=== PATIENT | male | born 1990 | race American Indian/Alaskan Native ===

== ENCOUNTER 2017-04-23 05:36 | Emergency (ER) | payer OTHER ==
[2017-04-23 05:41] VITALS: O2SAT 100
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
[2017-04-23 06:55] VITALS: BP 120/83; PULSE 80; RESP 20; TEMP 98
--- NOTE | 2017-04-23 09:09 | RAD ---
PROCEDURE: Right Hand Radiographs. HISTORY: trauma, pain and swelling COMPARISON: None. FINDINGS: BONES: Comminuted fracture 3rd metacarpal base with carpal/metacarpal extension nondisplaced. JOINTS: Normal. No osteoarthritic changes. SOFT TISSUES: Soft tissue swelling surrounding fracture OTHER FINDINGS: None. IMPRESSION: Third metacarpal fracture
== END 2017-04-23 06:57 | disposition home or self-care (01) ==
LOC: C.ER 05:36 → SUPCPDRO 05:36 → C.ER 06:57
DX: S62.342A Nondisplaced fracture of base of third metacarpal bone, right hand, initial encounter for closed fracture (principal); W51.XXXA Accidental striking against or bumped into by another person, initial encounter

== ENCOUNTER 2017-12-26 15:33 | Emergency (ER) | payer OTHER ==
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
[2017-12-26 17:29] LABS: BASO % 0.8 % (0.0-2.0); EOS # 0.1 K/uL (0.0-0.7); HEMOGLOBIN 13.8 g/dL (12.0-18.0); LYMPH % 43.1 % (20.0-40.0); MEAN CELL VOLUME 91.2 fL (80.0-94.0); MEAN CORPUSCULAR HEMOGLOBIN 32.2 pg (27.0-31.0); MEAN CORPUSCULAR HGB CONC 35.4 g/dL (33.0-37.0); MEAN PLATELET VOLUME 7.4 fL (7.2-11.7); MONO # 0.4 K/uL (0.0-0.8); MONO % 9.4 % (0.0-10.0); NEUT # 2.1 K/uL (1.8-7.0); NEUT % 44.7 % (50.0-75.0); NRBC % 0.1 % (0.0-2.0); RBC 4.27 Mil/uL (4.40-5.90); RED CELL DISTRIBUTION WIDTH 12.4 % (11.5-14.5); WHITE BLOOD COUNT 4.7 K/uL (4.8-10.8)
[2017-12-26 17:34] LABS: VENOUS BLOOD GAS BASE EXCESS 1.5 mmol/L (0.0-2.0); VENOUS BLOOD GAS PCO2 39 mmHg (40-60); VENOUS BLOOD GAS PO2 70 mm/Hg (30-55); VENOUS BLOOD PH 7.43 (7.32-7.43)
[2017-12-26 17:42] LABS: ALB/GLOB RATIO 1.6 (1.0-2.1); ALBUMIN 3.9 g/dL (3.5-5.0); ALT/SGPT 27 U/L (21-72); AST/SGOT 19 U/L (17-59); BLOOD UREA NITROGEN 17 mg/dL (9-20); CALCIUM 9.2 mg/dl (8.6-10.4); GFR NON-AFRICAN AMERICAN > 60
[2017-12-26 18:45] VITALS: BP 115/67; PULSE 63; RESP 17; TEMP 97.6; O2SAT 99
--- NOTE | 2017-12-27 09:08 | US ---
Date of service: 12/26/2017 HISTORY: inguinal hernia TECHNIQUE: Realtime sonography through the scrotum with color and doppler flow. COMPARISON: None Available. FINDINGS: RIGHT TESTICLE: Measures 5.5 x 2.5 x 2.4 cm. Normal echotexture and flow. There is microlithiasis. RIGHT EPIDIDYMIS: Epididymal head measures 1.1 x 0.7 x 1.0 cm. There is a 2 mm cyst in the head of the epididymis. Grossly unremarkable appearance with normal flow. LEFT TESTICLE: Measures 4.8 x 2.1 x 2.6 cm. Normal echotexture and flow. There is microcalcification. Additionally, there is a 5 mm coarse calcification posteriorly. LEFT EPIDIDYMIS: Epididymal head measures 1.0 x 0.8 x 0.9 cm. Grossly unremarkable appearance with normal flow. HYDROCELE: There is a small left hydrocele. VARICOCELE: There are bilateral varicoceles, larger on the left. OTHER FINDINGS: None. IMPRESSION: No evidence for testicular mass or torsion. Testicular microlithiasis. Clinical follow-up is advised. In high-risk patients, annual screening is advised. Bilateral varicoceles, larger on the left. Small left varicocele. A preliminary report was provided by [facility].
== END 2017-12-26 19:36 | disposition home or self-care (01) ==
LOC: C.ER 15:33
DX: K40.90 Unilateral inguinal hernia, without obstruction or gangrene, not specified as recurrent (principal); N45.1 Epididymitis

== ENCOUNTER 2018-07-31 10:20 | Outpatient (CLI) | payer OTHER | END 2018-07-31 10:21 | disposition home or self-care (01) | LOC: C.PAT 10:20 | DX: K40.90 Unilateral inguinal hernia, without obstruction or gangrene, not specified as recurrent (principal) ==

== ENCOUNTER 2018-08-06 05:57 | Day surgery (SDC) | payer OTHER ==
[2018-07-31 10:35] VITALS: BMI 23.1
[2018-08-06 06:55] VITALS: RESP 18
[2018-08-06] MEDS ORDERED: Bupivacaine 0.25% 20 ML INJ IJ ONE (07:32)
[2018-08-06] MEDS ORDERED: Lidocaine/Epinephrine 1% 1:100000 10 ML IJ ONE (07:32)
[2018-08-06] MEDS ORDERED: ceFAZolin 1 gm in NS 2 GM/200 ML BAG IVPB ONE (07:32)
[2018-08-06] MEDS ORDERED: Sodium Chloride 0.9% 40 ML IV ONE (07:32)
[2018-08-06] MEDS ORDERED: Bupivacaine Liposomal Inj 20 ml INFIL ONE (07:34)
[2018-08-06] MEDS ORDERED: Propofol 10 mg/ml Inj (20 ML) ONE (07:39)
[2018-08-06] MEDS ORDERED: Midazolam 2 MG/2 ML VIAL ONE (07:39)
[2018-08-06] MEDS ORDERED: Neostigmine 1:1000 (1 mg/ml) Inj ONE (09:25)
[2018-08-06] MEDS ORDERED: Morphine 4 MG/ML VIAL ONE (09:59)
[2018-08-06] MEDS ORDERED: HYDROmorphone 0.5 mg/0.5 ml ISec IVP PRN (10:09)
--- NOTE | 2018-08-06 10:45 | PCM.SURG1 ---
Surgeon's Initial Post Op Note - Surgeon's Notes Surgeon: Larry Hammer MD Vp Communications: MARY Yadav Type of Anesthesia: General Endo Pre-Operative Diagnosis: Right Inguinal henia. Right Groin pain Operative Findings: Right indirect inguinal hernia Post-Operative Diagnosis: Right indirect inguinal hernia Operation Performed: Robotic Right inguinal hernia repair with mesh. Lap B/L TAP block placement Specimen/Specimens Removed: None Estimated Blood Loss: EBL {In ML}: 10 Blood Products Given: N/A Drains Used: No Drains Post-Op Condition: Good Date of Surgery/Procedure: 08/06/18 Time of Surgery/Procedure: 10:44
[2018-08-06 12:18] VITALS: TEMP 97.5
[2018-08-06 13:03] VITALS: BP 134/90; PULSE 64; O2SAT 97
--- NOTE | 2018-08-12 20:50 | OP ---
PROCEDURE DATE: 08/06/2018 PREOPERATIVE DIAGNOSES: 1. Right inguinal hernia. 2. Right groin pain. 3. Left varicocele. POSTOPERATIVE DIAGNOSES: 1. Right inguinal hernia. 2. Right groin pain. 3. Left varicocele. PROCEDURE DONE: 1. Robotic right inguinal hernia repair with mesh. 2. Laparoscopic bilateral TAP block placement. SURGEON: Mathieu Hammer MD CREDENTIALING MANAGER: UNIQUE Yadav TYPE OF ANESTHESIA: General endotracheal tube. ESTIMATED BLOOD LOSS: Around 10 mL. DRAINS: None. PATHOLOGY: None. COMPLICATIONS: None. INTRAOPERATIVE FINDINGS: The patient had right indirect inguinal hernia. DESCRIPTION OF PROCEDURE: On intraoperative steps, this 27-year-old male was diagnosed with a right inguinal hernia and the patient also had left-sided varicocele and the patient was consented for robotic right inguinal hernia repair with mesh. Brought to the OR, placed supine on the operating table. After induction of the anesthesia, the abdomen was prepped and draped in the usual sterile fashion. Supraumbilical transverse incision was made using open technique. Peritoneal cavity was entered and pneumo was created. Another three 8 mm ports was placed in the upper abdomen, the robot was brought in. Camera arm as well as arm 1 and arm 2 were docked and peritoneum was dissected from the right ASIS up to the midline. The midline dissection was done up to the space of Retzius laterally. The peritoneal reflection was dissected off the lateral abdominal wall. The vas deferens and the spermatic cord vessels were also from the peritoneum and the large peritoneal sac was reduced back into the peritoneal cavity and the patient had extensive adhesions and all adhesions lysis was done and inferior dissection was done up to the pelvic brim and now the right anatomical mesh was placed. After proper placement of the mesh, the peritoneum was sutured with 0-Vicryl as well as 3-0 PDS V-Loc continuous suture and now the bilateral TAP block was given. The 30:30 mL of Exparel with saline was injected into the transverse abdominal muscle plane area bilaterally and after proper TAP block, all the ports were taken out under vision. Pneumo was deflated. Umbilical port site was closed in two layers, the fascia with 0-Vicryl interrupted sutures, skin with 4-0 Monocryl and dry sterile dressing was applied. The patient tolerated procedure well. Count of instrument and gauze was correct. There was no apparent complication. Mathieu Hammer MD
== END 2018-08-06 12:40 | disposition home or self-care (01) ==
LOC: C.SDS 05:57
PROVIDERS: ATTEND Surgery Surgical Critical Care
DX: K40.90 Unilateral inguinal hernia, without obstruction or gangrene, not specified as recurrent (principal)
CPT/HCPCS: 49650; J0690; J2250; J2270; J2704; J2710; J3010